=== PATIENT | male | born 1970 | race Caucasian/White ===

== ENCOUNTER 2016-12-08 17:33 | Emergency (ER) | payer OTHER, MEDICARE ==
[~2016-12-08] VITALS: Ht 188 cm; Wt 147.4 kg
[~2016-12-08 17:33] MED LIST: ASPIRIN EC81 M1 PO; AUGMENTIN 875 M1 TAB PO; AUGMENTIN 875875 MG PO; BACTRIM DS 8001 TAB PO; CEPHALEXIN500 MG PO; CYCLOBENZAPRINE10 M1 PO; CYCLOBENZAPRINE10 MG PO; Dulcolax PO; FINASTERIDE5 MG PO; FLOMAX(MONOGRA0.4 MG PO; IBUPROFEN800 MG PO; KEFLEX500 MG PO; LANTUS INS100 UNITS/ SC; LEVEMIR 10100 UNITS/ SC; LEVEMIR FL300 UNITS/; LEVEMIR100 U/ML SC; LOTRIMIN1% TOP; NOVOLOG 10300 UNITS/; NOVOLOG100 U/ML SC; PERCOCET 325 MG1 TA2 PO; PERCOCET 325 MG1 TAB PO; RAPAFLO8 MG PO; ROXICET 325 MG-1 TAB PO; TRAMADOL50 MG PO; ULTRAM50 M1 PO
[2016-12-08 17:38] VITALS: BP 168/92
--- NOTE | 2016-12-08 18:03 | ED HAND/WRIST INJURY COMPLAINT ---
History of Present Illness General Chief Complaint: General Adult Stated Complaint: SWOLLEN/RED RT HAND Source: patient, old records Exam Limitations: no limitations Vital Signs & Intake/Output Vital Signs & Intake/Output Vital Signs Date Time Temp Pulse Resp B/P B/P Pulse O2 O2 Flow FiO2 Mean Ox Delivery Rate 12/08 1823 97 Room Air 12/08 1738 97.6 73 16 168/92 97 Room Air Allergies Coded Allergies: NO KNOWN ALLERGIES (02/24/14) Reconcile Medications Aspirin (Ecotrin*) 81 MG TABLET.DR 1 TAB PO DAILY HEART/BLOOD (Reported) Cephalexin (Keflex) 500 MG CAPSULE 1 CAP PO TID cellulitis Cyclobenzaprine HCl 10 MG TABLET 1 TAB PO TID PRN PAIN/MUSCLE RELAXER ( Reported) Insulin Aspart (Novolog) (Unknown Strength) VIAL (Unknown Dose) SC TIDAC/HS DM (Reported) Insulin Glargine,Hum.rec.anlog (Lantus Solostar) 100 UNIT/ML (3 ML) INSULN.PEN 10 UNIT SC BID DM (Reported) Tramadol HCl (Ultram) 50 MG TABLET 2 TAB PO QHS PAIN (Reported) Triage Note: PT STATES HE WAS THROWING OUT SOME KRISTIN METAL 3 DAYS AGO AND STATES NOW HIS HAND IS RED AND SWOLLEN. PT IS NOT UTD WITH TETANUS Triage Nurses Notes Reviewed? yes Duration: day(s): (2), constant Timing: recent history Injury Environment: home Severity: mild Severity Numbers: 3 Pain/Injury Location: Right: Hand. Method of Injury: throwing sheet metal out No Modifying Factors: none Associated Symptoms: none HPI: 46-year-old male presents emergency room for evaluation complaining of redness warmth and pain to his right dorsal hand after he states 2 days ago he was throwing out sheet metal and sustained cuts or injuries to the hands. He is right-hand dominant. His last tetanus is unknown. He is complaining of mild aching pain injury occurred 2 days ago nonradiating he denies any redness or warmth radiating up his arm. There is no other injury. Has not taken anything for his symptoms are soccer until today. Past History Travel History Traveled to [place] past 21 day No Medical History Any Pertinent Medical History? see below for history Neurological: NONE EENT: NONE Cardiovascular: NONE Respiratory: NONE Gastrointestinal: NONE Hepatic: NONE Renal: NONE Musculoskeletal: h/o recurrent abscesses Psychiatric: NONE Endocrine: diabetes, obesity, GOUT Blood Disorders: NONE Cancer(s): NONE History of MRSA: Yes History of VRE: No History of CDIFF: No Influenza Vaccine: 05/21/15 Surgical History Surgical History: N foot Psychosocial History Who do you live with Significant Other Services at Home None What is your primary language Kiswahili Tobacco Use: Current Daily Use Daily Tobacco Use Amount/Type: => 5 Cigarettes daily ETOH Use: denies use Illicit Drug Use: denies illicit drug use Family History Family History, If Any: Relation not specified for: Diabetes mellitus in mother Hx Contributory? No Review of Systems Review of Systems Constitutional: Reports: see HPI. All Other Systems: Reviewed and Negative Comments Review of systems: See HPI, All other systems negative. Constitutional, no chills no fever, no malaise HEENT: no sore throat no congestion, no ear pain Cardiovascular: No chest pain , no palpitation , no orthopnea Skin: no rashes, no change in skin Respiratory: No dyspnea no cough no sputum GI: No nausea no vomiting, no diarrhea, no bloating/constipation : No dysuria Muscle skeletal: No joint pain, no joint swelling, no back pain, no neck pain, Neurologic: No numbness no confusion, no headache Psych: No stress no depression,. Heme/endocrine: No bruising no bleeding Immunology: No lymphadenopathy Physical Exam Physical Exam General Appearance: well developed/nourished, alert, awake Hand Left: normal range of motion Hand Right: normal range of motion Comments: Well-developed well-nourished patient in no apparent distress. HEENT: Atraumatic, extraocular motion intact Neck: Supple, FROM Back: FROM Cardiovascular: Regular rate and rhythms no murmurs rubs or gallops, Respiratory: No respiratory distress. Patient speaking in full complete sentences. Breath sounds clear to auscultation bilaterally: NO W/R/R Shoulder: Atraumatic/Stable. FROM . Elbow: Atraumatic/stable. FROM. No laxity Upper arm/Forearm: Atraumatic. Nontender. 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 Sensation capillary refills within normal limits FROM Pulses: Normal/equal radial pulses bilaterally. Brisk cap refill Lower Extremities: full range of motion Neuro: awake, alert, and oriented to person, place and time. There were no obvious focal neurologic abnormalities. Skin: Warm & dry;No appreciable rash on exposed skin Psych: Mood affect normal, normal memory normal judgment. Progress Differential Diagnosis: abscess, cellulitis, contusion, compartment syndrome, fracture, sprain Plan of Care: Current Medications Sig/Ling Start time Last Medication Dose Stop Time Status Admin Tetanus/Diphtheria 0.5 ML ONCE ONE 12/08 1814 UNVr Toxoids Adsorbed 12/09 1815 (Decavac) I had an extensive conversation regarding need for close follow up with their primary care physician this week as well as return precautions. I answered all of their questions, they feel comfortable with the plan and follow-up care. I discussed the medications that they will receive with the patient. I gave them signs and symptoms that could indicate an adverse reaction. I have advised them to limit their activities until they can see how they respond to the medication. (LAURA TOMAS,EUNICE) Departure Departure Time of Disposition: 1804 Disposition: HOME OR SELF CARE Condition: Stable Clinical Impression Primary Impression: Cellulitis Referrals: MOLINA ,CARROL Wood (PCP/Family) Additional Instructions: Keflex as directed. Apply bacitracin Neosporin daily. Follow up with your primary care physician next week for wound check, return anytime sooner with any concerns including worsening redness pain fever chills or any other concerns This prescription was sent to [facility] Departure Forms: Customer Survey General Discharge Information Prescriptions: Current Visit Scripts Cephalexin (Keflex) 1 CAP PO TID #21 CAP Prescriptions: Current Visit Scripts Cephalexin (Keflex) 1 CAP PO TID #21 CAP
[2016-12-08] MEDS ORDERED: KEFLEX500 M1 PO (18:06)
[2016-12-08] MEDS ORDERED: LANTUS SOL100 UNIT/1 SC (18:12)
[2016-12-08] MEDS ORDERED: NOVOLOG100 UNIT/2 SC (18:12)
== END 2016-12-08 18:28 ==
LOC: ERH 17:33
DX: L03.113 Cellulitis of right upper limb (principal); S60.410A Abrasion of right index finger, initial encounter; S60.412A Abrasion of right middle finger, initial encounter; W26.8XXA Contact with other sharp object(s), not elsewhere classified, initial encounter; Y93.89 Activity, other specified; Y92.9 Unspecified place or not applicable
CPT/HCPCS: 90471